=== PATIENT | male | born 1935 | race Caucasian/White ===

== ENCOUNTER 2022-01-28 12:20 | Emergency (ER) | payer MEDICARE, BC ==
[2022-01-28] MEDS: Lidocaine 2% 11 ML Jelly Filled Syringe MUCMEM ONE (12:45)
== END 2022-01-28 13:20 | disposition home or self-care (01) ==
LOC: JD.ED 12:20
DX: N39.0 Urinary tract infection, site not specified (principal); R33.9 Retention of urine, unspecified
CPT/HCPCS: 51702; 99283; A9270